=== PATIENT | male | born 1955 | race Caucasian/White ===

== ENCOUNTER 2018-08-21 02:09 | Inpatient (IN) | payer MEDICAID ==
[2018-08-21] VITALS (10 sets, daily range): BP systolic 113–145; BP diastolic 74–99
[~2018-08-21] VITALS: Ht 172.7 cm; Wt 136.4 kg
[2018-08-21] MEDS ORDERED: methylPREDNISolone sod succ 125mg/2ml vial IV ONE (02:25)
[2018-08-21] MEDS ORDERED: ipratropium/albuterol 3ml nebule NEB ONE (02:25)
[2018-08-21] MEDS ORDERED: albuterol 2.5 MG/3 ML nebule NEB ONE (02:25)
[2018-08-21 02:43] LABS: BASOPHILS % (AUTO) 0.4 % (0-1); EOSINOPHILS % (AUTO) 0 % (0-6); HEMATOCRIT 50.9 % (42.0-52.0); HEMOGLOBIN 16.6 g/dl (14.0-17.9); LYMPHOCYTES # (AUTO) 1.1 X10'3 (1.1-4.8); LYMPHOCYTES % (AUTO) 12.7 % (21-51); MEAN CORPUSCULAR HGB CONC 32.6 g/dL (33.0-36.5); MEAN PLATELET VOLUME 10.3 FL (7.4-10.4); MONOCYTES # (AUTO) 0.5 X10'3 (0-0.9); MONOCYTES % (AUTO) 5.9 % (2-12); NEUTROPHILS # (AUTO) 7.1 X10'3 (1.8-7.7); PLATELET COUNT 127 X10'3 (140-440); RED BLOOD COUNT 5.53 X10'6 (4.70-6.10); RED CELL DISTRIBUTION WIDTH 17.2 % (11.5-14.5); WHITE BLOOD COUNT 8.8 X10'3 (4.5-11.0)
[2018-08-21] MEDS ORDERED: LOSA25TA96 PO (02:53)
[2018-08-21] MEDS ORDERED: GABA-532 PO (02:53)
[2018-08-21] MEDS ORDERED: CEFE2FRO IV (02:53)
[2018-08-21] MEDS ORDERED: CARI350T PO (02:53)
[2018-08-21] MEDS ORDERED: METH28OI2 (02:53)
[2018-08-21] MEDS ORDERED: FLUO20CA39 PO (02:53)
[2018-08-21] MEDS ORDERED: ALB0.5UD IH (02:53)
[2018-08-21] MEDS ORDERED: POLY17PO10 PO (02:53)
[2018-08-21] MEDS ORDERED: ATR0.5NEB NEB (02:53)
[2018-08-21] MEDS ORDERED: NICO-687 TD (02:53)
[2018-08-21] MEDS ORDERED: DOCU-28 PO (02:53)
[2018-08-21] MEDS ORDERED: CLIN600P10 (02:53)
[2018-08-21] MEDS ORDERED: PER10325T PO (02:53)
[2018-08-21 02:58] LABS: INR 1.1 INR; PARTIAL THROMBOPLASTIN TIME 27 SECONDS (22-32)
[2018-08-21] MEDS ORDERED: mag hydrox/Alum hydrox/simeth 30ml oral suspension PO PRN (03:05)
[2018-08-21] MEDS ORDERED: ondansetron/PF 4mg/2ml inj IV PRN (03:05)
[2018-08-21] MEDS ORDERED: acetaminophen 325mg tablet PO PRN (03:05)
[2018-08-21] MEDS ORDERED: magnesium hydroxide 30ml (MOM) UD suspension PO PRN (03:05)
[2018-08-21] MEDS ORDERED: morphine 2 MG/ML inj. syringe IV PRN ×2 (03:05)
[2018-08-21] MEDS ORDERED: heparin 10,000 units/1 ML INJ IV ONE (03:05)
[2018-08-21] MEDS: heparin 25,000 UNIT/250ml bag 250 ML IV SCH ×4 (03:35→22:59)
[2018-08-21 03:38] LABS: ALANINE AMINOTRANSFERASE 36 U/L (12-78); ALBUMIN 3.1 G/DL (3.4-5.0); ALBUMIN/GLOBULIN RATIO 0.6 (1.1-1.5); ALKALINE PHOSPHATASE 100 IU/L (46-116); ANION GAP 4 (8-16); ASPARTATE AMINO TRANSFERASE 33 U/L (10-37); BILIRUBIN,TOTAL 0.4 MG/DL (0.1-1.0); BLOOD UREA NITROGEN 21 MG/DL (7-18); BUN/CREATININE RATIO 12.6 (5.4-32.0); CALCIUM 8.7 MG/DL (8.5-10.1); CHLORIDE 104 MMOL/L (99-107); CREATININE 1.67 MG/DL (0.60-1.10); POTASSIUM 5.7 MMOL/L (3.5-5.1); SODIUM 138 MMOL/L (135-145); TOTAL CARBON DIOXIDE 29.8 MMOL/L (24-32); TOTAL PROTEIN 8.4 G/DL (6.4-8.2); eGFR 42 ML/MIN
[2018-08-21 03:39] LABS: GLUCOSE 111 MG/DL (70-104)
--- NOTE | 2018-08-21 03:44 | NUR ---
DR PARK STATED TO GIVE HEPARIN DRIP AND BOLUS, DESPITE ST ES GIVING LOVENOX 40MG CLIENT SUPPORT MANAGER
[2018-08-21] MEDS ORDERED: azithromycin/NS 500mg/250ml 250 ML IV ONE (04:55)
[2018-08-21] MEDS ORDERED: CefTRIAXone/D5W-Rocephin 1gm 50 ML IV SCH (04:55)
[2018-08-21] MEDS: furosemide 40mg/4ml inj IV SCH ×3 (05:30→20:42)
[2018-08-21] MEDS: CefTRIAXone/D5W-Rocephin 1gm 50 ML IV SCH (05:31)
[2018-08-21 06:15] LABS: HEMOGLOBIN A1C 5.9 % (4.5-6.2)
--- NOTE | 2018-08-21 06:40 | NUR ---
PAGER ID: [phone] MESSAGE: dr. woods, 3027b/august, 3 hour trop 1.20 critical, jeannine [phone]. ty
--- NOTE | 2018-08-21 06:41 | NUR ---
Patient in room PCU 3027. I have received report from charlene stacy and had the opportunity to ask questions and assume patient care.
--- NOTE | 2018-08-21 06:46 | NUR ---
Problems reprioritized. Patient report given, questions answered & plan of care reviewed with JAYDEN Bonilla.
[2018-08-21] MEDS ORDERED: losartan 25mg tablet PO SCH (08:00)
[2018-08-21 08:10] LABS: ABG BASE EXCESS -0.5 mmol/L (-2.0-3.0); ABG OXYGEN SATURATION 91.8 % (95-98); ABG PCO2 (T) 54.3 mmHg (35.0-48.0); ABG PH (T) 7.315 (7.350-7.450); ABG PO2 (T) 64.9 mmHg (83-108); ALLEN'S TEST Positive; FCOHb 0.3 % (0.5-1.5); FMetHb 0.2 % (0.3-1.12); FO2Hb 91.3 % (94-100); RESPIRATORY RATE 18 b/min; RESPIRATORY RATE (OBSERVED) 20 b/min; TOTAL HEMOGLOBIN 18.9 G/dl (14.0-18.0)
[2018-08-21] MEDS: docusate sod 100mg capsule PO SCH ×2 (08:45→20:42)
[2018-08-21] MEDS: gabapentin 300mg capsule PO SCH ×2 (08:46→16:31)
[2018-08-21] MEDS: FLUoxetine 20mg capsule PO SCH (08:46)
[2018-08-21] MEDS: nicotine 21mg patch - 24 hr TD SCH (08:47)
[2018-08-21] MEDS: metoprolol tartrate 12.5mg (1/2 tablet) PO SCH ×2 (08:49→20:43)
[2018-08-21] MEDS: aspirin 325mg tablet PO SCH (08:49)
[2018-08-21] MEDS: HYDROcodone/acetaminophen 5mg/325mg tablet PO PRN ×2 (08:50→14:08)
--- NOTE | 2018-08-21 09:07 | NUR ---
PAGED RT:[id number], NEW RT ORDERS FROM DR. NEWELL. ALSO, CANNOT FIND SILICONE PAD FOR BIPAP. GEOVANNA [phone]. TY.
[2018-08-21 09:18] LABS: POTASSIUM 5.4 MMOL/L (3.5-5.1)
--- NOTE | 2018-08-21 09:24 | NUR ---
PAGER ID: [phone] MESSAGE: DR. NEWELL, 302/AUGUST, 6 HOUR TROP 1.00 LEXIE [id number].TY
[2018-08-21] MEDS ORDERED: sodium polystyrene sulfonate 15gm/60ml oral suspension PO ONE (09:30)
[2018-08-21] MEDS ORDERED: sodium bicarbonate (8.4%) 1 mEq/ml syringe IV ONE (09:30)
[2018-08-21] MEDS: nitroGLYCERIN 0.2mg/hour patch TD SCH (09:54)
[2018-08-21] MEDS: ipratropium/albuterol 3ml nebule NEB SCH ×4 (12:06→23:26)
[2018-08-21] MEDS: heparin 10,000 units/1 ML INJ IV PRN ×2 (12:18→20:38)
[2018-08-21 14:23] LABS: POTASSIUM 4.9 MMOL/L (3.5-5.1)
--- NOTE | 2018-08-21 14:37 | NUR ---
PAGER ID: [phone] MESSAGE: DR. NEWELL, 302/AUGUST, CRITICAL TROP 1.05. LEXIE [phone]. TY
--- NOTE | 2018-08-21 18:24 | NUR ---
Problems reprioritized. Patient report given, questions answered & plan of care reviewed with JAYDEN PRUITT.
--- NOTE | 2018-08-21 18:30 | NUR ---
Patient in room PCU 3027. I have received report from Chad CARPENTER and had the opportunity to ask questions and assume patient care.
[2018-08-21] MEDS: lactobacillus rhamnosus 10,000 MMU CELLS/CAPSULE PO SCH (20:42)
[2018-08-22] VITALS (9 sets, daily range): BP systolic 131–179; BP diastolic 73–100
[2018-08-22] MEDS: ipratropium/albuterol 3ml nebule NEB SCH ×6 (03:12→22:56)
[2018-08-22] MEDS: CefTRIAXone/D5W-Rocephin 1gm 50 ML IV SCH (04:57)
[2018-08-22 05:29] LABS: BASOPHILS % (AUTO) 0.3 % (0-1); EOSINOPHILS % (AUTO) 0.1 % (0-6); LYMPHOCYTES # (AUTO) 1.7 X10'3 (1.1-4.8); WHITE BLOOD COUNT 8.3 X10'3 (4.5-11.0)
[2018-08-22 05:32] LABS: HEMATOCRIT 51.3 % (42.0-52.0); HEMOGLOBIN 16.6 g/dl (14.0-17.9); LYMPHOCYTES % (AUTO) 20.9 % (21-51); MEAN CORPUSCULAR HEMOGLOBIN 29.6 PG (27.0-31.0); MEAN CORPUSCULAR HGB CONC 32.3 g/dL (33.0-36.5); MEAN CORPUSCULAR VOLUME 91.6 FL (78-98); MEAN PLATELET VOLUME 10.8 FL (7.4-10.4); MONOCYTES # (AUTO) 0.5 X10'3 (0-0.9); MONOCYTES % (AUTO) 5.4 % (2-12); NEUTROPHILS # (AUTO) 6.1 X10'3 (1.8-7.7); NEUTROPHILS % (AUTO) 73.3 % (42-75); PLATELET COUNT 118 X10'3 (140-440); RED CELL DISTRIBUTION WIDTH 17.6 % (11.5-14.5)
[2018-08-22 06:00] LABS: ALBUMIN 2.9 G/DL (3.4-5.0); ANION GAP 8 (8-16); BLOOD UREA NITROGEN 29 MG/DL (7-18); BUN/CREATININE RATIO 23.2 (5.4-32.0); CHLORIDE 102 MMOL/L (99-107); CHOL/HDL RATIO 3.1 (0.00-4.99); CHOLESTEROL 131 MG/DL (0-200); CREATININE 1.25 MG/DL (0.60-1.10); GLUCOSE 85 MG/DL (70-104); HDL CHOLESTEROL 42 MG/DL (35-60); LDL CHOLESTEROL 72 MG/DL (50-100); POTASSIUM 4.1 MMOL/L (3.5-5.1); SODIUM 140 MMOL/L (135-145); TOTAL CARBON DIOXIDE 30.1 MMOL/L (24-32); TRIGLYCERIDES 130 MG/DL (20-135); eGFR 59 ML/MIN
--- NOTE | 2018-08-22 06:25 | NUR ---
Problems reprioritized. Patient report given, questions answered & plan of care reviewed with Chad RN. Chad is aware of latest PTT of 37 result and stated he will make the appropriate changes/bolus.
[2018-08-22] MEDS: heparin 10,000 units/1 ML INJ IV PRN ×2 (06:36→19:24)
[2018-08-22] MEDS: heparin 25,000 UNIT/250ml bag 250 ML IV SCH ×4 (06:41→22:43)
--- NOTE | 2018-08-22 06:50 | NUR ---
Patient in room PCU 3027. I have received report from JAYDEN PRUITT and had the opportunity to ask questions and assume patient care.
[2018-08-22 06:58] LABS: ANISOCYTOSIS 1+; PLATELET ESTIMATE DECREASED
[2018-08-22] MEDS: furosemide 40mg/4ml inj IV SCH ×2 (07:44→16:00)
[2018-08-22] MEDS: docusate sod 100mg capsule PO SCH ×2 (07:45→19:21)
[2018-08-22] MEDS: lactobacillus rhamnosus 10,000 MMU CELLS/CAPSULE PO SCH ×2 (07:45→19:20)
[2018-08-22] MEDS: azithromycin/NS 500mg/250ml 250 ML IV SCH (07:45)
[2018-08-22] MEDS: gabapentin 300mg capsule PO SCH ×3 (07:46→16:00)
[2018-08-22] MEDS: FLUoxetine 20mg capsule PO SCH (07:46)
[2018-08-22] MEDS: metoprolol tartrate 12.5mg (1/2 tablet) PO SCH ×2 (07:46→19:21)
[2018-08-22] MEDS: aspirin 325mg tablet PO SCH (07:47)
[2018-08-22] MEDS: nicotine 21mg patch - 24 hr TD SCH (07:47)
[2018-08-22] MEDS: nitroGLYCERIN 0.2mg/hour patch TD SCH (07:47)
[2018-08-22] MEDS: HYDROcodone/acetaminophen 5mg/325mg tablet PO PRN ×2 (07:48→19:21)
--- NOTE | 2018-08-22 10:30 | NUR ---
PAGER ID: [phone] MESSAGE: DR. NEWELL, /AUGUST, WHY NO CORTICOSTEROIDS? LEXIE [phone], TY.
--- NOTE | 2018-08-22 13:02 | NUR ---
PAGER ID: [phone] MESSAGE: DR. NEWELL, 3027B/AUGUST, TROP 0.66. LEXIE [phone]. TY
--- NOTE | 2018-08-22 18:38 | NUR ---
Problems reprioritized. Patient report given, questions answered & plan of care reviewed with JAYDEN FERRARA.
--- NOTE | 2018-08-22 18:41 | NUR ---
Patient in room PCU 3027. I have received report from LEXIE CARPENTER and had the opportunity to ask questions and assume patient care.
[2018-08-23] VITALS (7 sets, daily range): BP systolic 132–158; BP diastolic 71–83
[2018-08-23] MEDS: furosemide 40mg/4ml inj IV SCH ×3 (00:43→15:58)
[2018-08-23] MEDS: gabapentin 300mg capsule PO SCH ×3 (00:43→15:59)
--- NOTE | 2018-08-23 02:07 | NUR ---
pt cardiac ptt is 58. in the therapeutic range. no change to rate, cont at 2400 units/24 ml per hr. ordered next timed cardiac ptt for 0730
[2018-08-23] MEDS: ipratropium/albuterol 3ml nebule NEB SCH ×6 (03:20→23:25)
[2018-08-23] MEDS: CefTRIAXone/D5W-Rocephin 1gm 50 ML IV SCH (05:25)
--- NOTE | 2018-08-23 06:14 | NUR ---
Problems reprioritized. Patient report given, questions answered & plan of care reviewed with LEXIE RN.
--- NOTE | 2018-08-23 06:20 | NUR ---
Patient in room PCU 3027. I have received report from JAYDEN FERRARA and had the opportunity to ask questions and assume patient care.
[2018-08-23 07:01] LABS: BASOPHILS % (AUTO) 0.5 % (0-1); EOSINOPHILS % (AUTO) 0.2 % (0-6); HEMATOCRIT 50.5 % (42.0-52.0); HEMOGLOBIN 16.6 g/dl (14.0-17.9); LYMPHOCYTES # (AUTO) 1.4 X10'3 (1.1-4.8); LYMPHOCYTES % (AUTO) 21.1 % (21-51); MEAN CORPUSCULAR HEMOGLOBIN 29.7 PG (27.0-31.0); MEAN CORPUSCULAR HGB CONC 32.9 g/dL (33.0-36.5); MEAN CORPUSCULAR VOLUME 90.1 FL (78-98); MEAN PLATELET VOLUME 10.6 FL (7.4-10.4); MONOCYTES # (AUTO) 0.4 X10'3 (0-0.9); MONOCYTES % (AUTO) 6.2 % (2-12); NEUTROPHILS # (AUTO) 4.8 X10'3 (1.8-7.7); PLATELET COUNT 110 X10'3 (140-440); RED BLOOD COUNT 5.61 X10'6 (4.70-6.10); RED CELL DISTRIBUTION WIDTH 17.1 % (11.5-14.5); WHITE BLOOD COUNT 6.7 X10'3 (4.5-11.0)
[2018-08-23 07:17] LABS: ALBUMIN 2.6 G/DL (3.4-5.0); ANION GAP 3 (8-16); BLOOD UREA NITROGEN 21 MG/DL (7-18); BUN/CREATININE RATIO 21.2 (5.4-32.0); CALCIUM 9.1 MG/DL (8.5-10.1); CHLORIDE 102 MMOL/L (99-107); CREATININE 0.99 MG/DL (0.60-1.10); GLUCOSE 85 MG/DL (70-104); POTASSIUM 3.8 MMOL/L (3.5-5.1); SODIUM 140 MMOL/L (135-145); TOTAL CARBON DIOXIDE 35.2 MMOL/L (24-32); TROPONIN I 0.46 NG/ML (0.0-0.05); eGFR 77 ML/MIN
[2018-08-23 07:32] LABS: ANISOCYTOSIS 1+; LARGE PLATELETS FEW; PLATELET ESTIMATE DECREASED
[2018-08-23] MEDS: nicotine 21mg patch - 24 hr TD SCH (07:50)
[2018-08-23] MEDS: azithromycin/NS 500mg/250ml 250 ML IV SCH (07:55)
[2018-08-23] MEDS: lactobacillus rhamnosus 10,000 MMU CELLS/CAPSULE PO SCH ×2 (07:57→20:34)
[2018-08-23] MEDS: docusate sod 100mg capsule PO SCH ×2 (07:57→20:35)
[2018-08-23] MEDS: metoprolol tartrate 12.5mg (1/2 tablet) PO SCH ×2 (07:57→20:35)
[2018-08-23] MEDS: FLUoxetine 20mg capsule PO SCH (07:58)
[2018-08-23] MEDS: nitroGLYCERIN 0.2mg/hour patch TD SCH (07:58)
[2018-08-23] MEDS: aspirin 325mg tablet PO SCH (08:00)
[2018-08-23] MEDS: heparin 25,000 UNIT/250ml bag 250 ML IV SCH ×2 (08:50→09:58)
[2018-08-23] MEDS: heparin 10,000 units/1 ML INJ IV PRN (09:53)
[2018-08-23] MEDS: HYDROcodone/acetaminophen 5mg/325mg tablet PO PRN (15:32)
[2018-08-23] MEDS: heparin, porcine 5000 units/ml vial SQ SCH (15:57)
[2018-08-23] MEDS: methylPREDNISolone sod succ 125mg/2ml vial IV SCH (15:57)
[2018-08-23] MEDS: pantoprazole 40 MG vial IV SCH (15:59)
[2018-08-23 17:11] LABS: ABG BASE EXCESS 6.4 mmol/L (-2.0-3.0); ABG HCO3 33.3 mmol/L (22.0-26.0); ABG PCO2 (T) 56.7 mmHg (35.0-48.0); ABG PH (T) 7.387 (7.350-7.450); ABG PO2 (T) 72.3 mmHg (83-108); ALLEN'S TEST Positive; FLOW 10 L/min
--- NOTE | 2018-08-23 17:13 | NUR ---
Problems reprioritized. Patient report given, questions answered & plan of care reviewed with CARMEL Madrid RN.
--- NOTE | 2018-08-23 17:20 | NUR ---
Assumed care of patient, no changes noted form Keisha RN report
--- NOTE | 2018-08-23 18:00 | NUR ---
Patient in room PCU 3027. I have received report from Julius Hickman RN and had the opportunity to ask questions and assume patient care.
--- NOTE | 2018-08-23 18:14 | NUR ---
Problems reprioritized. Patient report given, questions answered & plan of care reviewed with Iliana Vela RN, pt greeted at bedside.. Addendum: 08/23/18 at 1824 by Marylou Dubon RN name Correction Kayla Vela RN
[2018-08-24] VITALS (7 sets, daily range): BP systolic 142–164; BP diastolic 69–91
[2018-08-24] MEDS: furosemide 40mg/4ml inj IV SCH ×4 (00:24→20:12)
[2018-08-24] MEDS: methylPREDNISolone sod succ 125mg/2ml vial IV SCH ×2 (00:27→08:00)
[2018-08-24] MEDS: gabapentin 300mg capsule PO SCH ×3 (00:30→15:25)
[2018-08-24] MEDS: heparin, porcine 5000 units/ml vial SQ SCH ×3 (00:33→15:24)
[2018-08-24] MEDS: ipratropium/albuterol 3ml nebule NEB SCH ×6 (03:03→23:27)
[2018-08-24] MEDS: CefTRIAXone/D5W-Rocephin 1gm 50 ML IV SCH (04:54)
[2018-08-24 04:58] LABS: LYMPHOCYTES # (AUTO) 0.4 X10'3 (1.1-4.8); MEAN PLATELET VOLUME 10.1 FL (7.4-10.4); MONOCYTES # (AUTO) 0.1 X10'3 (0-0.9)
[2018-08-24 05:02] LABS: BASOPHILS % (AUTO) 0.2 % (0-1); EOSINOPHILS % (AUTO) 0 % (0-6); HEMATOCRIT 51.5 % (42.0-52.0); HEMOGLOBIN 17.4 g/dl (14.0-17.9); LYMPHOCYTES % (AUTO) 7.7 % (21-51); MEAN CORPUSCULAR HEMOGLOBIN 30.2 PG (27.0-31.0); MEAN CORPUSCULAR HGB CONC 33.8 g/dL (33.0-36.5); MEAN CORPUSCULAR VOLUME 89.5 FL (78-98); MONOCYTES % (AUTO) 1.1 % (2-12); NEUTROPHILS # (AUTO) 4.2 X10'3 (1.8-7.7); PLATELET COUNT 110 X10'3 (140-440); RED BLOOD COUNT 5.75 X10'6 (4.70-6.10); RED CELL DISTRIBUTION WIDTH 16.5 % (11.5-14.5); WHITE BLOOD COUNT 4.6 X10'3 (4.5-11.0)
[2018-08-24 05:21] LABS: ALBUMIN 2.7 G/DL (3.4-5.0); ANION GAP 3 (8-16); BLOOD UREA NITROGEN 19 MG/DL (7-18); BUN/CREATININE RATIO 22.1 (5.4-32.0); CALCIUM 9.1 MG/DL (8.5-10.1); CHLORIDE 101 MMOL/L (99-107); CREATININE 0.86 MG/DL (0.60-1.10); GLUCOSE 137 MG/DL (70-104); POTASSIUM 4.3 MMOL/L (3.5-5.1); SODIUM 137 MMOL/L (135-145); TOTAL CARBON DIOXIDE 33.1 MMOL/L (24-32); eGFR > 90 ML/MIN
--- NOTE | 2018-08-24 06:00 | NUR ---
Patient in room PCU 3027. I have received report from Jefferson Hickman RN and had the opportunity to ask questions and assume patient care.
[2018-08-24] MEDS: azithromycin/NS 500mg/250ml 250 ML IV SCH (07:55)
[2018-08-24] MEDS: pantoprazole 40 MG vial IV SCH (08:00)
[2018-08-24] MEDS: HYDROcodone/acetaminophen 5mg/325mg tablet PO PRN (08:00)
[2018-08-24] MEDS: docusate sod 100mg capsule PO SCH ×2 (08:00→20:12)
[2018-08-24] MEDS: FLUoxetine 20mg capsule PO SCH (08:00)
[2018-08-24] MEDS: lactobacillus rhamnosus 10,000 MMU CELLS/CAPSULE PO SCH ×2 (08:00→20:12)
[2018-08-24] MEDS: aspirin 325mg tablet PO SCH (08:00)
[2018-08-24] MEDS: metoprolol tartrate 12.5mg (1/2 tablet) PO SCH ×2 (08:00→20:13)
[2018-08-24] MEDS: nitroGLYCERIN 0.2mg/hour patch TD SCH (08:17)
[2018-08-24] MEDS: nicotine 21mg patch - 24 hr TD SCH (08:19)
[2018-08-24] MEDS: methylPREDNISolone sod succ/PF 40mg inj. IV SCH (15:23)
[2018-08-24] MEDS: HYDROcodone/acetaminophen 10/325mg tab PO PRN ×2 (15:25→20:23)
--- NOTE | 2018-08-24 18:18 | NUR ---
Problems reprioritized. Patient report given, questions answered & plan of care reviewed with reynaldo Monte pt at bedside.
--- NOTE | 2018-08-24 18:35 | NUR ---
Patient in room PCU 3027. I have received report from Marylou Paulino RN and had the opportunity to ask questions and assume patient care.
[2018-08-25] MEDS: gabapentin 300mg capsule PO SCH ×4 (00:25→23:58)
[2018-08-25] MEDS: methylPREDNISolone sod succ/PF 40mg inj. IV SCH ×4 (00:25→23:57)
[2018-08-25] MEDS: heparin, porcine 5000 units/ml vial SQ SCH ×4 (00:25→23:58)
[2018-08-25] MEDS: furosemide 40mg/4ml inj IV SCH ×4 (01:19→20:10)
[2018-08-25 02:00] VITALS: BP 162/103
[2018-08-25] MEDS: ipratropium/albuterol 3ml nebule NEB SCH ×6 (03:20→23:04)
[2018-08-25 04:18] LABS: BASOPHILS % (AUTO) 0.2 % (0-1); EOSINOPHILS % (AUTO) 0 % (0-6); HEMATOCRIT 53.8 % (42.0-52.0); HEMOGLOBIN 17.6 g/dl (14.0-17.9); LYMPHOCYTES # (AUTO) 0.6 X10'3 (1.1-4.8); LYMPHOCYTES % (AUTO) 9.9 % (21-51); MEAN CORPUSCULAR HEMOGLOBIN 29.3 PG (27.0-31.0); MEAN CORPUSCULAR HGB CONC 32.7 g/dL (33.0-36.5); MEAN CORPUSCULAR VOLUME 89.6 FL (78-98); MEAN PLATELET VOLUME 10.7 FL (7.4-10.4); MONOCYTES # (AUTO) 0.2 X10'3 (0-0.9); MONOCYTES % (AUTO) 2.6 % (2-12); NEUTROPHILS # (AUTO) 5.7 X10'3 (1.8-7.7); NEUTROPHILS % (AUTO) 87.3 % (42-75); PLATELET COUNT 127 X10'3 (140-440); RED BLOOD COUNT 6.01 X10'6 (4.70-6.10); RED CELL DISTRIBUTION WIDTH 16.8 % (11.5-14.5); WHITE BLOOD COUNT 6.5 X10'3 (4.5-11.0)
[2018-08-25 04:38] LABS: ALBUMIN 2.8 G/DL (3.4-5.0); ANION GAP 4 (8-16); BLOOD UREA NITROGEN 27 MG/DL (7-18); BUN/CREATININE RATIO 26.2 (5.4-32.0); CALCIUM 9.3 MG/DL (8.5-10.1); CHLORIDE 99 MMOL/L (99-107); CREATININE 1.03 MG/DL (0.60-1.10); GLUCOSE 128 MG/DL (70-104); POTASSIUM 4.1 MMOL/L (3.5-5.1); SODIUM 138 MMOL/L (135-145); TOTAL CARBON DIOXIDE 35.3 MMOL/L (24-32); eGFR 74 ML/MIN
[2018-08-25] MEDS: CefTRIAXone/D5W-Rocephin 1gm 50 ML IV SCH (04:55)
[2018-08-25 06:00] VITALS: BP 154/96
--- NOTE | 2018-08-25 06:40 | NUR ---
Problems reprioritized. Patient report given, questions answered & plan of care reviewed with Sara CARPENTER.
[2018-08-25 06:45] LABS: LARGE PLATELETS FEW; PLATELET ESTIMATE DECREASED
[2018-08-25] MEDS: nitroGLYCERIN 0.2mg/hour patch TD SCH (08:00)
[2018-08-25] MEDS: pantoprazole 40mg Tablet.DR PO SCH (08:00)
[2018-08-25] MEDS: FLUoxetine 20mg capsule PO SCH (08:00)
[2018-08-25] MEDS: lactobacillus rhamnosus 10,000 MMU CELLS/CAPSULE PO SCH ×2 (08:00→20:06)
[2018-08-25] MEDS: carvedilol 6.25mg tablet PO SCH ×2 (08:00→20:07)
[2018-08-25] MEDS: aspirin 325mg tablet PO SCH (08:00)
[2018-08-25] MEDS: docusate sod 100mg capsule PO SCH ×2 (08:00→20:06)
[2018-08-25] MEDS: nicotine 21mg patch - 24 hr TD SCH (08:02)
[2018-08-25] MEDS: HYDROcodone/acetaminophen 10/325mg tab PO PRN ×3 (08:07→20:08)
[2018-08-25] MEDS ORDERED: nitroGLYCERIN 0.4mg SUBLingual tab SL PRN (10:05)
[2018-08-25] MEDS ORDERED: metoprolol tartrate 1mg/ml inj IV PRN (10:05)
[2018-08-25] MEDS ORDERED: regadenoson 0.4mg/5ml syringe IV ONE (10:05)
[2018-08-25] MEDS ORDERED: aminophylline 250mg/10ml inj. IV PRN (10:05)
[2018-08-25 11:00] VITALS: BP 155/96
--- NOTE | 2018-08-25 11:20 | NUR ---
Initial: Pt admit with acute resp failure and acute COPD exacerbation with community-acquired pneumonia. Pt with oxygen and Solumedrol per MD notes. Pt currently on a heart healthy diet with documented 100% intake of meals meeting nutrient needs. [facility] 08/22 receiving routine Colace with MoM PRN not yet given. No nutrition diagnosis at this time. Will continue to follow. Recommendations: 1) Continue with heart healthy diet 2) Monitor need for additional bowel care 3) Wt per rx Addendum: 08/25/18 at [address] Amended: Links added.
[2018-08-25 15:00] VITALS: BP 159/96
[2018-08-25 18:00] VITALS: BP 176/95
--- NOTE | 2018-08-25 18:17 | NUR ---
Problems reprioritized. Patient report given, questions answered & plan of care reviewed with JAYDEN MCKINNEY.
--- NOTE | 2018-08-25 18:18 | NUR ---
Patient in room PCU 3027. I have received report from Sara CARPENTER and had the opportunity to ask questions and assume patient care.
[2018-08-25] MEDS: lisinopril 10 MG tablet PO SCH (20:08)
[2018-08-25 22:00] VITALS: BP 145/82
[2018-08-26] VITALS (14 sets, daily range): BP systolic 117–159; BP diastolic 64–97
[2018-08-26] MEDS: furosemide 40mg/4ml inj IV SCH ×4 (02:09→20:37)
[2018-08-26] MEDS: ipratropium/albuterol 3ml nebule NEB SCH ×6 (03:27→23:42)
--- NOTE | 2018-08-26 04:54 | NUR ---
I have reviewed and agree with all interventions, assessments performed and documented by Joaquín Woods.
--- NOTE | 2018-08-26 04:56 | NUR ---
[place] Medication Administration: For this medication-pass time frame, all medication were reviewed, dispensed, administered and documented per hospital policy by JAYDEN Woods.
[2018-08-26] MEDS: CefTRIAXone/D5W-Rocephin 1gm 50 ML IV SCH (05:03)
[2018-08-26 05:16] LABS: BASOPHILS # (AUTO) 0.1 X10'3 (0-0.2); BASOPHILS % (AUTO) 0.8 % (0-1); EOSINOPHILS % (AUTO) 0.1 % (0-6); HEMATOCRIT 57.7 % (42.0-52.0); LYMPHOCYTES # (AUTO) 0.7 X10'3 (1.1-4.8); LYMPHOCYTES % (AUTO) 9.9 % (21-51); MEAN CORPUSCULAR HEMOGLOBIN 29.2 PG (27.0-31.0); MEAN CORPUSCULAR HGB CONC 32.6 g/dL (33.0-36.5); MEAN CORPUSCULAR VOLUME 89.5 FL (78-98); MEAN PLATELET VOLUME 11.1 FL (7.4-10.4); MONOCYTES # (AUTO) 0.3 X10'3 (0-0.9); MONOCYTES % (AUTO) 4.5 % (2-12); NEUTROPHILS # (AUTO) 5.8 X10'3 (1.8-7.7); NEUTROPHILS % (AUTO) 84.7 % (42-75); PLATELET COUNT 156 X10'3 (140-440); RED BLOOD COUNT 6.45 X10'6 (4.70-6.10); RED CELL DISTRIBUTION WIDTH 16.5 % (11.5-14.5); WHITE BLOOD COUNT 6.8 X10'3 (4.5-11.0)
[2018-08-26 05:22] LABS: HEMOGLOBIN 18.8 g/dl (14.0-17.9)
[2018-08-26 05:39] LABS: ALBUMIN 3.2 G/DL (3.4-5.0); ANION GAP 7 (8-16); BLOOD UREA NITROGEN 31 MG/DL (7-18); BUN/CREATININE RATIO 31.3 (5.4-32.0); CALCIUM 9.7 MG/DL (8.5-10.1); CHLORIDE 96 MMOL/L (99-107); CREATININE 0.99 MG/DL (0.60-1.10); GLUCOSE 127 MG/DL (70-104); POTASSIUM 3.8 MMOL/L (3.5-5.1); SODIUM 137 MMOL/L (135-145); TOTAL CARBON DIOXIDE 34.3 MMOL/L (24-32); eGFR 77 ML/MIN
[2018-08-26 06:10] LABS: LARGE PLATELETS FEW; PLATELET ESTIMATE NORMAL
--- NOTE | 2018-08-26 06:13 | NUR ---
Problems reprioritized. Patient report give to JAYDEN Moses, questions answered & plan of care reviewed.
--- NOTE | 2018-08-26 06:42 | NUR ---
Patient in room PCU 3027. I have received report from Alix/Peggy CARPENTER and had the opportunity to ask questions and assume patient care.
[2018-08-26] MEDS: lactobacillus rhamnosus 10,000 MMU CELLS/CAPSULE PO SCH ×2 (09:17→20:37)
[2018-08-26] MEDS: gabapentin 300mg capsule PO SCH ×2 (09:17→16:26)
[2018-08-26] MEDS: carVEDilol 12.5mg tablet PO SCH ×2 (09:18→20:38)
[2018-08-26] MEDS: docusate sod 100mg capsule PO SCH ×2 (09:18→20:37)
[2018-08-26] MEDS: pantoprazole 40mg Tablet.DR PO SCH (09:18)
[2018-08-26] MEDS: aspirin 325mg tablet PO SCH (09:18)
[2018-08-26] MEDS: FLUoxetine 20mg capsule PO SCH (09:20)
[2018-08-26] MEDS: heparin, porcine 5000 units/ml vial SQ SCH ×2 (09:21→16:25)
[2018-08-26] MEDS: nicotine 21mg patch - 24 hr TD SCH (09:22)
[2018-08-26] MEDS: methylPREDNISolone sod succ/PF 40mg inj. IV SCH ×2 (09:25→16:28)
[2018-08-26] MEDS ORDERED: aminophylline inj. 10 ML IV ONE (09:55)
[2018-08-26] MEDS ORDERED: regadenoson 0.4mg/5ml syringe IV ONE (09:55)
[2018-08-26] MEDS: HYDROcodone/acetaminophen 10/325mg tab PO PRN ×2 (11:51→19:13)
[2018-08-26] MEDS: nitroGLYCERIN 0.2mg/hour patch TD SCH (11:52)
--- NOTE | 2018-08-26 19:14 | NUR ---
Patient in room PCU 3027. I have received report from JAYDEN AGUIRRE and had the opportunity to ask questions and assume patient care.
--- NOTE | 2018-08-26 19:26 | NUR ---
Problems reprioritized. Patient report given, questions answered & plan of care reviewed with Sebastien CARPENTER.
[2018-08-26] MEDS: lisinopril 10 MG tablet PO SCH (20:38)
[2018-08-26 21:26] LABS: ABG BASE EXCESS 7.2 mmol/L (-2.0-3.0); ABG HCO3 33.5 mmol/L (22.0-26.0); ABG OXYGEN SATURATION 91.8 % (95-98); ABG PCO2 (T) 50.6 mmHg (35.0-48.0); ABG PH (T) 7.439 (7.350-7.450); ABG PO2 (T) 62.5 mmHg (83-108); ALLEN'S TEST Positive; FCOHb 0.2 % (0.5-1.5); FMetHb 0.3 % (0.3-1.12); FO2Hb 91.3 % (94-100); PATIENT TEMPERATURE 37.2; TOTAL HEMOGLOBIN 21.1 G/dl (14.0-18.0)
[2018-08-27] MEDS: heparin, porcine 5000 units/ml vial SQ SCH ×3 (00:10→16:33)
[2018-08-27] MEDS: methylPREDNISolone sod succ/PF 40mg inj. IV SCH ×3 (00:10→16:32)
[2018-08-27] MEDS: gabapentin 300mg capsule PO SCH ×3 (00:10→16:33)
[2018-08-27 02:00] VITALS: BP 131/86
[2018-08-27] MEDS: furosemide 40mg/4ml inj IV SCH ×4 (02:43→20:41)
[2018-08-27] MEDS: ipratropium/albuterol 3ml nebule NEB SCH ×6 (03:18→23:29)
[2018-08-27] MEDS: CefTRIAXone/D5W-Rocephin 1gm 50 ML IV SCH (04:57)
--- NOTE | 2018-08-27 06:20 | NUR ---
Patient in room PCU 3027. I have received report from JAYDEN Crowe and had the opportunity to ask questions and assume patient care.
[2018-08-27 06:30] VITALS: BP 151/83
[2018-08-27] MEDS: nicotine 21mg patch - 24 hr TD SCH (09:13)
[2018-08-27] MEDS: nitroGLYCERIN 0.2mg/hour patch TD SCH (09:13)
[2018-08-27] MEDS: FLUoxetine 20mg capsule PO SCH (09:14)
[2018-08-27] MEDS: lactobacillus rhamnosus 10,000 MMU CELLS/CAPSULE PO SCH ×2 (09:14→20:38)
[2018-08-27] MEDS: pantoprazole 40mg Tablet.DR PO SCH (09:14)
[2018-08-27] MEDS: carVEDilol 12.5mg tablet PO SCH ×2 (09:14→20:39)
[2018-08-27] MEDS: aspirin 325mg tablet PO SCH (09:14)
[2018-08-27] MEDS: docusate sod 100mg capsule PO SCH ×2 (09:17→20:39)
[2018-08-27] MEDS: HYDROcodone/acetaminophen 10/325mg tab PO PRN ×3 (09:17→20:41)
--- NOTE | 2018-08-27 10:54 | NUR ---
O2 Sat at rest on room air:__83_% If below 89%: Recovery O2 Sat at rest on __3_LPM:__92_%:___% via NC____(mask/nasal cannula, etc..) No further documentation is necessary. If O2 Sat did not drop below 89% on room air,ambulate patient on room air. O2 Sat while ambulating on room air:___% Recovery O2 Sat while ambulating on ___LPM:___% No further documentation is necessary. If patient does not drop below 89% while ambulating, he/she does not qualify for home O2.
[2018-08-27 11:30] VITALS: BP 143/90
[2018-08-27 15:00] VITALS: BP 158/89
--- NOTE | 2018-08-27 18:35 | NUR ---
Problems reprioritized. Patient report given, questions answered & plan of care reviewed with Natasha Kaur RN.
--- NOTE | 2018-08-27 18:47 | NUR ---
Patient in room PCU 3027. I have received report from JAVIER CARPENTER and had the opportunity to ask questions and assume patient care.
[2018-08-27 20:00] VITALS: BP 141/85
[2018-08-27] MEDS: lisinopril 10 MG tablet PO SCH (20:40)
[2018-08-27 23:00] VITALS: BP 135/92
[2018-08-28] MEDS: gabapentin 300mg capsule PO SCH ×2 (00:36→08:02)
[2018-08-28] MEDS: methylPREDNISolone sod succ/PF 40mg inj. IV SCH ×2 (00:37→08:03)
[2018-08-28] MEDS: heparin, porcine 5000 units/ml vial SQ SCH ×2 (00:42→08:04)
[2018-08-28] MEDS: furosemide 40mg/4ml inj IV SCH ×2 (02:19→08:03)
[2018-08-28 03:00] VITALS: BP 135/76
[2018-08-28] MEDS: ipratropium/albuterol 3ml nebule NEB SCH ×3 (03:27→11:00)
--- NOTE | 2018-08-28 06:18 | NUR ---
Problems reprioritized. Patient report given, questions answered & plan of care reviewed with CARMEL CARPENTER.
--- NOTE | 2018-08-28 06:19 | NUR ---
Patient in room PCU 3027. I have received report from Devin CARPENTER and had the opportunity to ask questions and assume patient care.
[2018-08-28] MEDS: CefTRIAXone/D5W-Rocephin 1gm 50 ML IV SCH (06:29)
[2018-08-28 07:00] VITALS: BP 142/88
[2018-08-28] MEDS: pantoprazole 40mg Tablet.DR PO SCH (08:02)
[2018-08-28] MEDS: docusate sod 100mg capsule PO SCH (08:02)
[2018-08-28] MEDS: lactobacillus rhamnosus 10,000 MMU CELLS/CAPSULE PO SCH (08:02)
[2018-08-28] MEDS: carVEDilol 12.5mg tablet PO SCH (08:02)
[2018-08-28] MEDS: FLUoxetine 20mg capsule PO SCH (08:02)
[2018-08-28] MEDS: aspirin 325mg tablet PO SCH (08:03)
[2018-08-28] MEDS: HYDROcodone/acetaminophen 10/325mg tab PO PRN (08:03)
[2018-08-28] MEDS: nicotine 21mg patch - 24 hr TD SCH (08:05)
[2018-08-28] MEDS: nitroGLYCERIN 0.2mg/hour patch TD SCH (08:07)
[2018-08-28] MEDS ORDERED: CARV-50 PO (09:37)
[2018-08-28] MEDS ORDERED: LISI10TA4 PO (09:37)
[2018-08-28] MEDS ORDERED: ASPI-1 PO (09:38)
[2018-08-28 11:00] VITALS: BP 140/76
--- NOTE | 2018-08-28 12:00 | NUR ---
Pt discharged home at 1155. Discharged instructions and patient education reviewed before signing and being sent home with patient. PIV was removed with cannula intact, telemetry monitoring was removed and all belongings were sent home with patient. New medications were called in to [facility]. Patient was wheeled out by staff, and patient left via private vehicle with son home.
== END 2018-08-28 11:50 | disposition home or self-care (01) | DRG 190 ==
LOC: ER 02:12 → PCU 3S 04:08 → CMPBEDREQ 04:37
PROVIDERS: ADMIT Internal Medicine; ATTEND Internal Medicine
PROC: 5A09457 Assistance with Respiratory Ventilation, 24-96 Consecutive Hours, Continuous Positive Airway Pressure (ICD-10-PCS; principal; 2018-08-21)
PROC: 5A09357 Assistance with Respiratory Ventilation, Less than 24 Consecutive Hours, Continuous Positive Airway Pressure (ICD-10-PCS; 2018-08-23)
PROC: 4A02XM4 Measurement of Cardiac Total Activity, External Approach (ICD-10-PCS; 2018-08-26)
PROC: 3E033HZ Introduction of Radioactive Substance into Peripheral Vein, Percutaneous Approach (ICD-10-PCS; 2018-08-26)
DX: I21.4 Non-ST elevation (NSTEMI) myocardial infarction (principal); I50.21 Acute systolic (congestive) heart failure; J18.9 Pneumonia, unspecified organism; J96.01 Acute respiratory failure with hypoxia; J96.02 Acute respiratory failure with hypercapnia; E87.2 Acidosis; N17.9 Acute kidney failure, unspecified; I11.0 Hypertensive heart disease with heart failure; G89.29 Other chronic pain; E87.5 Hyperkalemia; J44.0 Chronic obstructive pulmonary disease with (acute) lower respiratory infection; J98.11 Atelectasis; Z68.42 Body mass index [BMI] 45.0-49.9, adult; J44.1 Chronic obstructive pulmonary disease with (acute) exacerbation; E66.01 Morbid (severe) obesity due to excess calories; F32.9 Major depressive disorder, single episode, unspecified; G62.9 Polyneuropathy, unspecified; F17.210 Nicotine dependence, cigarettes, uncomplicated; Z66 Do not resuscitate; Z88.8 Allergy status to other drugs, medicaments and biological substances; Z79.899 Other long term (current) drug therapy; Z71.6 Tobacco abuse counseling
CPT/HCPCS: 36415; 36600; 71045; 78452; 80048; 80053; 80061; 82803; 83036; 83880; 84132; 84145; 84484; 85018; 85025; 85610; 85730; 87040; 87070; 87502; 87503; 93005; 93017; 93306; 94640; 94660; 94760; 96374; 96375; 97116; 97162; 97530; 99285; A9500; C9113; G0378; J0280; J0456; J0696; J1644; J1940; J2920; J2930